=== PATIENT | female | born 1990 | race African-American/Black ===

== ENCOUNTER 2017-04-30 12:29 | Emergency (ER) | payer BC, MEDICAID ==
[~2017-04-30] VITALS: Ht 167.6 cm; Wt 55.0 kg
[2017-04-30 13:32] VITALS: BP 107/70
== END 2017-04-30 17:34 | disposition home or self-care (01) ==
LOC: ER 15:05
DX: R00.2 Palpitations (principal)
CPT/HCPCS: 71045; 93005; 99284